=== PATIENT | female | born 1935 | race African-American/Black ===

== ENCOUNTER → 2023-10-31 13:06 | Outpatient (REF) | payer OTHER, SELFPAY | LOC: HWRAD 13:06 | PROVIDERS: ATTENDING PHYSICIAN Internal Medicine | DX: R63.5 Abnormal weight gain (principal); R19.8 Other specified symptoms and signs involving the digestive system and abdomen; I50.43 Acute on chronic combined systolic (congestive) and diastolic (congestive) heart failure | CPT/HCPCS: 76700 ==